=== PATIENT | female | born 1940 | race Caucasian/White ===

== ENCOUNTER 2023-10-20 21:28 | Emergency (ER) | payer OTHER ==
[2023-10-20] MEDS ORDERED: FENTANYL CITR 100 MCG/2 ML ONE ×2 (21:41→23:23)
--- NOTE | 2023-10-20 22:05 | RAD REPORT ---
EXAM DESCRIPTION: RAD - Humerus Right - 10/20/2023 9:58 pm CLINICAL HISTORY: PAIN COMPARISON: No comparisons FINDINGS/IMPRESSION: Displaced, comminuted right proximal humerus fracture involving the surgical ne ck and greater tuberosity. The fracture has an oblique component extending down to the mid humeral di aphysis. Though limited by positioning, the humeral head is probably located.
[2023-10-20] MEDS ORDERED: HYDROCODONE/APAP 10/325 TAB ONE (22:24)
[2023-10-20] MEDS ORDERED: ONDANSETRON 4 MG/2 ML VIAL ONE (23:23)
[2023-10-21 00:45] LABS: Absolute Lymphocytes (CBC) 0.5 K/uL (0.7-4.9); Absolute Monocytes 0.8 K/uL (0.1-1.3); Absolute Neutrophil 13.8 K/uL (1.8-8.0); Basophils % 0.1 % (0-1.3); Hematocrit 33.7 % (36.0-45.0); Hemoglobin 10.6 g/dL (12.0-15.0); Lymphocytes % 3.4 % (15.3-44.8); MCH 30.4 pg (27.0-35.0); MCHC 31.5 g/dL (32.0-36.0); MCV 96.3 fL (80-100); MPV 9.2 fL (7.6-11.3); Neutrophils % 91.5 % (41.7-73.7); Platelets 221 thou/uL (152-406); Red Cell Distribution Width 14.3 % (12.1-15.2)
[2023-10-21 00:58] LABS: Anion Gap 9.9 mEq/L (5.0-15.0); Potassium 3.9 mEq/L (3.5-5.1)
[2023-10-21 01:42] LABS: Specific Gravity 1.021 (1.005-1.030); Sqamous Epithelial None Seen /HPF (None Seen); Urine Bacteria None Seen /HPF (<20); Urine Bilirubin NEGATIVE (Negative); Urine Blood Negative (Negative); Urine Clarity Turbid (Clear); Urine Color Dark-Yellow (Yellow); Urine Culture Reflex Order REFLEXED; Urine Glucose NEGATIVE (Negative); Urine Ketones NEGATIVE (Negative); Urine Microscopic Reflex YN ORDER UMIC; Urine Nitrite NEGATIVE (Negative); Urine Protein TRACE (Negative); Urine RBC <5 /HPF (None Seen); Urine Urobilinogen Normal (Normal); Urine WBC >50 /HPF (<5); Urine WBC Clump Occasional /HPF (None Seen)
[2023-10-21 01:52] LABS: White Blood Cell Scan OK (OK)
[2023-10-21 01:53] LABS: Blood Morphology Comment NOT SEEN (NOT SEEN); Platelet Estimate ADEQ
[2023-10-21] MEDS ORDERED: FENTANYL CITR 100 MCG/2 ML ONE (02:07)
--- NOTE | 2023-10-21 03:04 | EDPHYS ---
Physician Documentation [facility] Name: Crystal Elizabeth Age: 82 yrs Sex: Female : 1940 Arrival Date: 10/20/2023 Time: 21:28 Bed 3 Private MD: ED Physician Mike Liu HPI: 10/20 03:05 This 82 yrs old Female presents to ER via EMS with complaints of Fall Injury. bo1 10/19 21:35 Details of fall: The patient fell from a height, Pt was walking in garage and tripped bo1 over her left foot. Hit her right shoulder to the garage floor and head to a freezer. No LOC. Pt called out to her and he called "[id number].". Onset: The symptoms/episode began/occurred just prior to arrival. EMS transport with 1 gram of IV acetaminophen given and then 50 mcg of fentanyl IV. Arm is in a sling. Pt reports of a "neuroma" on her left foot.. Historical: - Allergies: 21:30 No Known Allergies; jw7 - PMHx: 21:30 UTI; Hypertensive disorder; Hypercholesterolemia; jw7 - PSHx: 21:30 Cholecystectomy; Total abdominal hysterectomy; Bladder-Stones; Appendectomy; jw7 - Immunization history: Last tetanus immunization: unknown. - Infectious Disease History:: Denies. - Social history:: Smoking status: Patient denies any tobacco usage or history of. ROS: 22:04 MS/Extremity: Positive for injury and deformity, to the right femur. bo1 22:04 Respiratory: Negative for shortness of breath, 22:04 Abdomen/GI: Negative for abdominal pain, Exam: 22:04 Constitutional: This is a well developed, well nourished patient who is awake, alert, bo1 and in acute distress. Neck: Trachea midline, no thyromegaly or masses palpated, and no cervical lymphadenopathy. Supple, full range of motion without nuchal rigidity, or vertebral point tenderness. No Meningismus. Chest/axilla: Normal chest wall appearance and motion. Nontender with no deformity. No lesions are appreciated. Abdomen/GI: Soft, non-tender, with normal bowel sounds. No distension or tympany. No guarding or rebound. No evidence of tenderness throughout. Skin: Warm, dry with normal turgor. Normal color with no rashes, no lesions, and no evidence of cellulitis. MS/ Extremity: Pulses equal, no cyanosis. Neurovascular intact. Tenderness and pain to the right humerus. In an armsling. Limited ROM. Held in adduction. Neuro: Awake and alert, GCS 15, oriented to person, place, time, and situation. Cranial nerves II-XII grossly intact. Motor strength 5/5 in all extremities. Sensory grossly intact. Cerebellar exam normal. Vital Signs: 21:30 BP 160 / 62; Pulse 70; Resp 20 S; Temp 98.2(O); Pulse Ox 96% on R/A; Weight 81.19 kg; jw7 Height 5 ft. 4 in. ; Pain 10/10; 22:30 BP 151 / 60; Pulse 72; Resp 18 S; Pulse Ox 97% on R/A; jw7 23:30 BP 158 / 57; Pulse 73; Resp 17 S; Pulse Ox 95% on R/A; [facility] 10/20 00:30 BP 146 / 54; Pulse 69; Resp 18 S; Pulse Ox 98% on R/A; 7 01:30 BP 150 / 65; Pulse 74; Resp 16 S; Pulse Ox 98% on R/A; [facility] 02:21 BP 166 / 48; Pulse 79; Resp 17 S; Pulse Ox 100% on R/A; [facility] 03:30 BP 164 / 48; Pulse 86; Resp 17; Pulse Ox 100% on 2 lpm NC; [facility] 04:06 BP 163 / 70; Pulse 70; Resp 16 S; Pulse Ox 99% on 2 lpm NC; [facility] 10/19 21:30 Body Mass Index 30.72 (81.19 kg, 162.56 cm) [facility] 10/19 21:30 Pain Scale: Adult jw7 [place] Coma Score: 10/19 21:30 Eye Response: spontaneous(4). Motor Response: obeys commands(6). Verbal Response: jw7 oriented(5). Total: 15. Trauma Score (Adult): 21:30 Eye Response: spontaneous(1); Verbal Response: oriented(1); Motor Response: obeys [facility] commands(2); Systolic BP: > 89 mm Hg(4); Respiratory Rate: 10 to 29 per min(4); [place] Score: 15; Trauma Score: 12 Procedures: 22:18 Splinting: sling and swathe. bo1 MDM: 21:32 Patient medically screened. bo1 22:03 ED course: Pt's pain control is better with meds. Family is present. Xrays are pending..bo1 22:19 ED course: Pt and family told of xray results and plan. No ortho till the 23 of October. bo1 Pt elects for home trial on discharge.. 22:58 Differential diagnosis: fracture. Management of patient was discussed with the bo1 following: Pt and family: Pt requests transfer to [facility] for ortho consult/pain control.. 23:30 ED course: Transfer update: Acceptance by Ortho \\Jeanne\\ [facility]. Pending medicine [facility] acceptance/admission.. 10/20 02:59 ED course: Discussed lab results with Dr Eugenio HAAS. Accepted to service of Dr Jeanne le MD. MOT to [facility].. 03:05 Data reviewed: vital signs, lab test result(s), CBC, electrolytes, urinalysis, [facility] radiologic studies, plain films. 10/19 23:36 Order name: CBC with Diff; Complete Time: 02:02 [facility] 10/19 23:36 Order name: Basic Metabolic Panel; Complete Time: 01:13 [facility] 10/19 23:38 Order name: Urinalysis w/ reflexes; Complete Time: 02:02 vc1 10/20 01:50 Order name: CBC Smear Scan; Complete Time: 02:02 [facility]SC 10/20 01:52 Order name: Urine Culture [facility]SC 10/19 21:34 Order name: XRAY CXR (1 view) [facility] 10/19 21:34 Order name: Humerus Right XRAY; Complete Time: 22:06 [facility] 10/19 22:21 Order name: Sling; Complete Time: 01:27 [facility] Administered Medications: 10/19 21:54 Drug: fentaNYL (PF) IVP 100 mcg IVP once Route: IVP; Site: left wrist; jw7 22:21 Follow up: Response: No adverse reaction; No change in condition; Pain is unchanged, jw7 physician notified 22:34 Drug: HYDROcodone-acetaminophen PO 10 mg-325 mg 1 tabs PO once Route: PO; jw7 23:29 Follow up: Response: No adverse reaction; Pain is unchanged, physician notified jw7 23:27 Drug: fentaNYL (PF) IVP 100 mcg IVP once Route: IVP; Site: left wrist; jw7 10/20 03:26 Follow up: Response: No adverse reaction; Marked relief of symptoms jw7 10/19 23:27 Drug: Ondansetron IVP 4 mg IVP once; over 2 minutes Route: IVP; Site: left wrist; jw7 10/20 03:27 Follow up: Response: No adverse reaction; Marked relief of symptoms jw7 02:30 Drug: fentaNYL (PF) IVP 100 mcg IVP once Route: IVP; Site: left antecubital; jw7 03:27 Follow up: Response: No adverse reaction; Marked relief of symptoms jw7 03:40 Drug: morphine IVP or IV 4 mg IVP once over 4 mins Route: IVP; Infused Over: 4 mins; jw7 Site: left antecubital; 04:06 Follow up: Response: No adverse reaction; Marked relief of symptoms jw7 03:40 Drug: Ondansetron IVP 4 mg IVP once; over 2 minutes Route: IVP; Site: left antecubital; jw7 04:06 Follow up: Response: No adverse reaction; Marked relief of symptoms jw7 Disposition Summary: 10/21/23 03:04 Transfer Ordered Notes: Transfer Location: [facility] bo1 Reason: Higher level of care bo1 Condition: Stable bo1 Problem: new bo1 Symptoms: are unchanged bo1 Accepting Physician: Dr Jeanne Sifuentes MD (Med Service) \\T\\ [facility] DT.(10/21/23 04:10) jw7 Diagnosis - Fracture of upper end of humerus bo1 - Fall on same level, unspecified bo1 Discharge Instructions: - Discharge Summary Sheet ty Forms: - Medication Reconciliation Form bo1 - SBAR form bo1 Signatures: Dispatcher [employer] EDMS Kellie Lam RN RN jw7 Mike Liu MD MD bo1 Corrections: (The following items were deleted from the chart) 10/19 21:34 21:34 Chest Single View+RAD.RAD.BRZ ordered. EDMS EDMS 21:35 21:35 Humerus Right+RAD.RAD.BRZ ordered. EDMS EDMS 23:37 23:37 CBC+H.LAB.BRZ ordered. EDMS EDMS 23:37 23:37 BASIC METABOLIC PANEL+C.LAB.BRZ ordered. EDMS EDMS 10/20 01:10/19 23:39 CBC+H.LAB.BRZ ordered. EDMS EDMS 10/20 01:10/19 23:39 BASIC METABOLIC PANEL+C.LAB.BRZ ordered. EDMS EDMS 10/20 01:55 10/19 23:37 Test, Urine+UC.LAB.BRZ ordered. EDMS EDMS 10/20 01:55 10/19 23:37 Urinalysis+U.LAB.BRZ ordered. EDMS EDMS 10/20 04:10 03:04 Dr Jeanne Sifuentes MD (Med Service) \\T\\ [facility] DT. bo1 jw7
--- NOTE | 2023-10-21 03:04 | ER ---
Nurse's Notes [facility] Name: Crystal Elizabeth Age: 82 yrs Sex: Female : 1940 Arrival Date: 10/20/2023 Time: 21:28 Bed 3 Private MD: Diagnosis: Fracture of upper end of humerus;Fall on same level, unspecified Presentation: 10/19 21:30 Chief complaint: Patient states: I tripped and fell in my garage, hitting my right jw7 arm/shoulder on the concrete floor. 21:30 Care prior to arrival: Medication(s) given: Tylenol, 1000 mg, IV Fentanyl 50mcg IV IV jw7 initiated. 18 GA, in the left wrist. Mechanism of Injury: Fall from standing position. an unknown distance. Trauma event details: Injury occurred in the [facility], Injury occurred: at home. Injury occurred: October 20, 2023 Injury occurred at: 20:30. 21:30 Acuity: AYAAN 3 jw7 21:30 Method Of Arrival: [facility] jw7 21:30 Coronavirus screen: At this time, the client does not indicate any symptoms associated jw7 with coronavirus-19. Ebola Screen: No symptoms or risks identified at this time. Initial Sepsis Screen: Does the patient meet any 2 criteria? No. Patient's initial sepsis screen is negative. Does the patient have a suspected source of infection? No. Patient's initial sepsis screen is negative. Risk Assessment: Do you want to hurt yourself or someone else? Patient reports no desire to harm self or others. Onset of symptoms was October 20, 2023. Historical: - Allergies: 21:30 No Known Allergies; jw7 - PMHx: 21:30 UTI; Hypertensive disorder; Hypercholesterolemia; jw7 - PSHx: 21:30 Cholecystectomy; Total abdominal hysterectomy; Bladder-Stones; Appendectomy; jw7 - Immunization history: Last tetanus immunization: unknown. - Infectious Disease History:: Denies. - Social history:: Smoking status: Patient denies any tobacco usage or history of. Screenin:30 Abuse screen: Denies threats or abuse. Denies injuries from another. Nutritional jw7 screening: No deficits noted. Tuberculosis screening: No symptoms or risk factors identified. 21:30 [facility] ED Fall Risk Assessment (Adult) History of falling in the last 3 months, jw7 including since admission Yes- single mechanical fall (1 pt) Confusion or Disorientation No (0 pts) Intoxicated or Sedated No (0 pts) Impaired Gait No (0 pts) Mobility Assist Device Used No (0 pt) Altered Elimination No (0 pt) Score/Fall Risk Level 0 - 2 = Low Risk Oriented to surroundings, Maintained a safe environment, Educated pt \T\ family on fall prevention, incl call for assistance when getting out of bed. Primary Survey: 21:30 NO uncontrolled hemorrhage observed. A: The client is awake and alert. The airway is jw7 patent. Breathing/Chest: Spontaneous respiratory effort, equal unlabored respirations, breath sounds clear bilaterally, regular pattern, symmetrical chest rise and fall. Circulation: No external hemorrhage present. Regular and strong central pulse, skin warm/dry/normal color. Disability Pupils are equal, round, reactive to light and accommodation. Client is alert. Exposure/Environment: All clothing and personal items were removed. Forensic evidence collection is not deemed to be indicated at this time. Items placed in patient belonging bag. There is no evidence of uncontrolled external bleeding. A warming method has been applied: A warm blanket has been provided to the patient. 22:10 Reassessment Breathing: Spontaneous respiratory effort, equal unlabored respirations, jw7 breath sounds clear bilaterally, regular pattern with symmetrical chest rise and fall. Circulation: No external hemorrhage noted. Regular and strong central pulse, skin warm/dry/normal color. Disability: Pupils Pupils are equal, round, reactive to light and accomodation. Alert. Assessment: 21:30 General: Appears in no apparent distress. uncomfortable, well groomed, well developed, jw7 well nourished, Behavior is calm, cooperative, appropriate for age. Pain: Complains of pain in Right arm and shoulder Pain does not radiate. Pain currently is 10 out of 10 on a pain scale. Quality of pain is described as sharp, stabbing, throbbing, stinging, Pain began suddenly, Is continuous. Neuro: Level of Consciousness is awake, alert, obeys commands, Oriented to person, place, time, situation, Appropriate for age. EENT: No deficits noted. No signs and/or symptoms were reported regarding the EENT system. Cardiovascular: Heart tones S1 S2 present Capillary refill < 3 seconds Clubbing of nail beds is absent JVD is absent Patient's skin is warm and dry. Respiratory: Airway is patent Trachea midline Respiratory effort is even, unlabored, Respiratory pattern is regular, symmetrical. GI: Abdomen is round non-distended, Bowel sounds present X 4 quads. Abd is soft X 4 quads. : Reports Currently being treated for Bacterial UTI. Derm: Skin is intact, is healthy with good turgor, Skin is dry, Skin is normal, Skin temperature is warm. Musculoskeletal: Circulation, motion, and sensation intact. Range of motion: limited in right shoulder. Nursing diagnosis: Alteration in coping mechanism: potential. 22:30 Reassessment: Patient appears in no apparent distress at this time. No changes from 7 previously documented assessment. Patient and/or family updated on plan of care and expected duration. Pain level reassessed. Patient is alert, oriented x 3, equal unlabored respirations, skin warm/dry/pink. 23:30 Reassessment: Patient appears in no apparent distress at this time. No changes from jw7 previously documented assessment. Patient and/or family updated on plan of care and expected duration. Pain level reassessed. Patient is alert, oriented x 3, equal unlabored respirations, skin warm/dry/pink. 07 00:30 Reassessment: Patient appears in no apparent distress at this time. No changes from jw7 previously documented assessment. Patient and/or family updated on plan of care and expected duration. Pain level reassessed. Patient is alert, oriented x 3, equal unlabored respirations, skin warm/dry/pink. 01:30 Reassessment: Patient appears in no apparent distress at this time. No changes from jw7 previously documented assessment. Patient and/or family updated on plan of care and expected duration. Pain level reassessed. Patient is alert, oriented x 3, equal unlabored respirations, skin warm/dry/pink. 02:14 Reassessment: Patient appears in no apparent distress at this time. No changes from jw7 previously documented assessment. Patient and/or family updated on plan of care and expected duration. Pain level reassessed. Patient is alert, oriented x 3, equal unlabored respirations, skin warm/dry/pink. 03:00 Reassessment: Patient appears in no apparent distress at this time. Patient and/or jw family updated on plan of care and expected duration. Pain level reassessed. Patient is alert, oriented x 3, equal unlabored respirations, skin warm/dry/pink. Patient states symptoms have improved. 04:00 Reassessment: Patient appears in no apparent distress at this time. No changes from [facility] previously documented assessment. Patient and/or family updated on plan of care and expected duration. Pain level reassessed. Patient is alert, oriented x 3, equal unlabored respirations, skin warm/dry/pink. Vital Signs: 10/19 21:30 BP 160 / 62; Pulse 70; Resp 20 S; Temp 98.2(O); Pulse Ox 96% on R/A; Weight 81.19 kg; jw7 Height 5 ft. 4 in. ; Pain 10/10; 22:30 BP 151 / 60; Pulse 72; Resp 18 S; Pulse Ox 97% on R/A; jw7 23:30 BP 158 / 57; Pulse 73; Resp 17 S; Pulse Ox 95% on R/A; 7 10/20 00:30 BP 146 / 54; Pulse 69; Resp 18 S; Pulse Ox 98% on R/A; jw7 01:30 BP 150 / 65; Pulse 74; Resp 16 S; Pulse Ox 98% on R/A; jw7 02:21 BP 166 / 48; Pulse 79; Resp 17 S; Pulse Ox 100% on R/A; jw7 03:30 BP 164 / 48; Pulse 86; Resp 17; Pulse Ox 100% on 2 lpm NC; jw7 04:06 BP 163 / 70; Pulse 70; Resp 16 S; Pulse Ox 99% on 2 lpm NC; 7 10/19 21:30 Body Mass Index 30.72 (81.19 kg, 162.56 cm) [facility] 10/19 21:30 Pain Scale: Adult jw [place] Coma Score: 10/19 21:30 Eye Response: spontaneous(4). Motor Response: obeys commands(6). Verbal Response: jw7 oriented(5). Total: 15. Trauma Score (Adult): 21:30 Eye Response: spontaneous(1); Verbal Response: oriented(1); Motor Response: obeys [facility] commands(2); Systolic BP: > 89 mm Hg(4); Respiratory Rate: 10 to 29 per min(4); [place] Score: 15; Trauma Score: 12 ED Course: 21:30 Maintain EMS IV. Dressing intact. Good blood return noted. Site clean \T\ dry. Gauge \T\ jw 7 site: 18G L Wrist. 21:30 O2 via RA. jw7 21:30 Patient has correct armband on for positive identification. Bed in low position. Call jw7 light in reach. Side rails up X2. O2 via RA. 21:30 Provided Education on: Use of Call Light. jw7 21:30 Arm band placed on. jw7 21:32 Patient arrived in ED. ty 21:32 Mike Liu MD is Attending Physician. bo1 21:59 Humerus Right XRAY In Process Unspecified. EDMS 22:02 Triage completed. jw7 22:13 Thermoregulation: warm blanket given to patient. jw7 22:32 Contacted [facility] for patient transfer. ty 22:40 answered by Messi. ty 22:58 XRAY CXR (1 view) In Process Unspecified. EDMS 07 02:03 Straight cath inserted, using sterile technique, 14 Fr. Specimen obtained. Returned rv1 inez urine. Patient tolerated well. 02:04 Removal of. rv1 03:24 [facility] called for patient transport. ty 04:07 No provider procedures requiring assistance completed. Patient transferred, IV remains jw7 in place. Administered Medications: 10/19 21:54 Drug: fentaNYL (PF) IVP 100 mcg IVP once Route: IVP; Site: left wrist; jw7 22:21 Follow up: Response: No adverse reaction; No change in condition; Pain is unchanged, jw7 physician notified 22:34 Drug: HYDROcodone-acetaminophen PO 10 mg-325 mg 1 tabs PO once Route: PO; jw7 23:29 Follow up: Response: No adverse reaction; Pain is unchanged, physician notified jw7 23:27 Drug: fentaNYL (PF) IVP 100 mcg IVP once Route: IVP; Site: left wrist; jw7 10/20 03:26 Follow up: Response: No adverse reaction; Marked relief of symptoms jw7 10/19 23:27 Drug: Ondansetron IVP 4 mg IVP once; over 2 minutes Route: IVP; Site: left wrist; jw7 10/20 03:27 Follow up: Response: No adverse reaction; Marked relief of symptoms jw7 02:30 Drug: fentaNYL (PF) IVP 100 mcg IVP once Route: IVP; Site: left antecubital; jw7 03:27 Follow up: Response: No adverse reaction; Marked relief of symptoms jw7 03:40 Drug: morphine IVP or IV 4 mg IVP once over 4 mins Route: IVP; Infused Over: 4 mins; jw7 Site: left antecubital; 04:06 Follow up: Response: No adverse reaction; Marked relief of symptoms jw7 03:40 Drug: Ondansetron IVP 4 mg IVP once; over 2 minutes Route: IVP; Site: left antecubital; jw7 04:06 Follow up: Response: No adverse reaction; Marked relief of symptoms jw7 Medication: 04:07 VIS not applicable for this client. jw7 Intake: 04:09 PO: 50ml (Water); IV: 50ml (IV Fluid); Total: 100ml. jw7 Output: 04:09 Urine: 250ml (Straight Cath); Total: 250ml. jw7 Outcome: 03:00 Patient's length of stay in the Emergency Department was greater than 2 hours. jw7 Receiving facility requesting a basic lab workup before accepting patient. Patient's length of stay extended due to 03:04 ER care complete, transfer ordered by MD. le 04:07 Transferred by ground EMS to [facility], jw7 04:07 Condition: stable 04:07 Instructed on the need for transfer, Demonstrated understanding of instructions, 04:10 Patient left the ED. jw7 Signatures: Dispatcher [employer] Kellie Alvarado RN RN jw7 Kristi Carreno rv1 Dawson Jose Benjamin, MD MD bo1
[2023-10-21] MEDS ORDERED: MORPHINE 4 MG/ML SYR ONE (03:30)
[2023-10-21] MEDS ORDERED: ONDANSETRON 4 MG/2 ML VIAL ONE (03:30)
[2023-10-21 04:21] VITALS: TEMP 98.2
[2023-10-21 04:36] VITALS: BP 163/70; O2SAT 99
--- NOTE | 2023-10-21 11:58 | RAD REPORT ---
EXAM DESCRIPTION: Chest Single View 10/21/2023 12:23 AM CDT CLINICAL HISTORY: 82 years, Female, BLUNT CHEST TRAUMA COMPARISON: None FINDINGS: 1 views of the chest was obtained. No prior films are available at this time for compari son. There is slight decreased lung volume. Mediastinum: The cardiomediastinal silhouette appears normal in size and shape. Lungs: No areas of consolidations or masses are identified. Heart: The heart is normal in size. Thoracic aorta: The thoracic aorta demonstrate to be normal. Pulmonary vasculature: The pulmonary vasculature is normal in distribution. Pleura: The costophrenic angles demonstrate to be sharp. Osseous structures: The bony structures demonstrate to be within normal limits. Other: None. IMPRESSION: No acute cardiopulmonary disease is seen Electronically signed by: Say Alvarez MD 10/21/2023 12:24 AM CDT RP Due to temporary technical issues with the PACS/Fluency reporting system, reports are being signed by the in house radiologist without review as a courtesy to ensure prompt reporting. The interpreting r adiologist is fully responsible for the content of the report.
== END 2023-10-21 04:10 | disposition short-term general hospital (02) ==
LOC: ER 21:28
DX: S42.251A Displaced fracture of greater tuberosity of right humerus, initial encounter for closed fracture (principal); S42.211A Unspecified displaced fracture of surgical neck of right humerus, initial encounter for closed fracture; W18.30XA Fall on same level, unspecified, initial encounter
CPT/HCPCS: 85025; 81001; 87086; 80048; 36415; 71045; 73060; 51702; 99285; J3010 ×3; J2405 ×2; 87088